=== PATIENT | male | born 2000 | race Caucasian/White ===

== ENCOUNTER 2023-03-16 16:20 | Emergency (ER) | payer OTHER, BC ==
[2023-03-16] MEDS ORDERED: Lidocaine 1% 30 ML SDV INJECT ONE (16:30)
[2023-03-16] MEDS ORDERED: Ibuprofen 200 MG Tab PO ONE (17:13)
[2023-03-16] MEDS ORDERED: Diphtheria,Pertussis(Acell),Tetanus Vaccine 0.5 ML Syringe IM ONE (17:21)
== END 2023-03-16 17:31 | disposition home or self-care (01) ==
LOC: VM.ED 16:20
DX: S51.812A Laceration without foreign body of left forearm, initial encounter (principal); Z23 Encounter for immunization; W25.XXXA Contact with sharp glass, initial encounter
CPT/HCPCS: 12002; 73100-LT; 90471; 90715; 99283-25; A9270-GY; J3490